=== PATIENT | male | born 1970 | race Caucasian/White ===

== ENCOUNTER 2016-09-07 17:14 | Emergency (ER) | payer OTHER | END 2016-09-07 19:55 | disposition home or self-care (01) | LOC: ER 17:14 | DX: B34.9 Viral infection, unspecified (principal); E87.6 Hypokalemia; R42 Dizziness and giddiness; R05 Cough; F17.210 Nicotine dependence, cigarettes, uncomplicated; Z79.899 Other long term (current) drug therapy; Z79.891 Long term (current) use of opiate analgesic; Z88.6 Allergy status to analgesic agent ==

== ENCOUNTER 2016-09-16 00:26 | Emergency (ER) | payer OTHER | END 2016-09-16 03:15 | disposition home or self-care (01) | LOC: ER 00:26 | DX: J02.9 Acute pharyngitis, unspecified (principal); T24.322D Burn of third degree of left knee, subsequent encounter; S81.002D Unspecified open wound, left knee, subsequent encounter; F17.210 Nicotine dependence, cigarettes, uncomplicated; Z79.899 Other long term (current) drug therapy; Z88.6 Allergy status to analgesic agent | CPT/HCPCS: 87070; 87880; 96372; 99282-25 ==